=== PATIENT | female | born 1965 | race Caucasian/White ===

== ENCOUNTER 2016-05-22 22:33 | Emergency (ER) | payer OTHER ==
[~2016-05-22] VITALS: Ht 175.3 cm; Wt 71.4 kg
[2016-05-22 22:51] VITALS: BP 123/66; TEMP 97.1
[2016-05-23] MEDS ORDERED: WELLBUTRIN XL300 M1 PO (00:06)
[2016-05-23] MEDS ORDERED: ZYRTEC 10MG10 MG PO (00:08)
[2016-05-23] MEDS ORDERED: NEXIUM 40MG40 MG PO (00:10)
[2016-05-23] MEDS ORDERED: SINGULAIR 110 MG/TAB PO (00:10)
[2016-05-23] MEDS ORDERED: LIPITOR 40MG TA40 MG PO (00:10)
[2016-05-23] MEDS ORDERED: PREMARIN 0.9MG0.9 MG PO (00:10)
[2016-05-23] MEDS ORDERED: ASPIRIN 81M81 MG/TA2 PO (00:11)
[2016-05-23] MEDS ORDERED: LINZESS145CAP PO (00:11)
[2016-05-23] MEDS ORDERED: ZESTRIL 10MG10 MG PO (00:11)
[2016-05-23] MEDS ORDERED: XANAX 0.5MG0.5 MG PO (00:12)
[2016-05-23] MEDS ORDERED: ZOFRAN8 MG PO (00:13)
[2016-05-23 01:10] VITALS: PULSE 72
== END 2016-05-23 01:15 | disposition home or self-care (01) ==
LOC: COL.ER 22:33
DX: H57.12 Ocular pain, left eye (principal)